=== PATIENT | female | born 1995 | race Caucasian/White ===

== ENCOUNTER 2021-05-14 20:39 | Emergency (ER) | payer SELFPAY ==
[2021-05-14 21:37] VITALS: BP 123/74; PULSE 98; TEMP 98.8; BMI 27.3
== END 2021-05-15 01:44 | disposition left against medical advice (07) ==
LOC: JER 20:39
DX: R05 Cough (principal); R50.9 Fever, unspecified; J02.9 Acute pharyngitis, unspecified; Z11.52 Encounter for screening for COVID-19
CPT/HCPCS: 87880; 99283-25; C9803; U0003; U0005